=== PATIENT | male | born 2000 | race African-American/Black ===

== ENCOUNTER 2024-01-22 16:21 | Emergency (ER) | payer MEDICAID ==
[~2024-01-22] VITALS: Ht 170.2 cm; Wt 75.0 kg
[2024-01-22 16:23] VITALS: O2SAT 97
[2024-01-22 16:42] LABS: BASOPHILS % 0.9 % (0.0-2.0); DIFFERENTIAL COMMENT 0; EOSINOPHILS % 1.4 % (0.0-5.0); HEMATOCRIT. 46.7 % (42.0-52.0); HEMOGLOBIN. 15.1 g/dL (14.0-18.0); LYMPHOCYTES % 59.3 % (20.0-50.0); MEAN CORPUSCULAR HEMOGLOBIN 30.2 pg (28.0-32.0); MEAN CORPUSCULAR HGB CONC 32.3 g/dL (31.0-37.0); MEAN CORPUSCULAR VOLUME 93.6 fL (80.0-94.0); MEAN PLATELET VOLUME 9.9 fl (7.4-10.4); MONOCYTES % 6.9 % (2.0-8.0); NEUTROPHILS % 31.5 % (40.0-76.0); PLATELET 252 x1000/uL (130-400); RED BLOOD CELL COUNT 4.99 mill/uL (4.7-6.1); WHITE BLOOD COUNT 5.7 x1000/uL (4.5-11.0)
[2024-01-22 16:51] LABS: CHLORIDE 108 mEq/L (98-107); POTASSIUM 3.1 mEq/L (3.5-5.1); SODIUM 142 mEq/L (136-145)
[2024-01-22 16:52] LABS: CALCIUM 9.9 mg/dL (8.7-10.4); CARBON DIOXIDE 19 mEq/L (21-32)
[2024-01-22 16:57] LABS: CREATININE 1.4 mg/dL (0.6-1.3); GLUCOSE 172 mg/dL (70-105); UREA NITROGEN BLOOD 7 mg/dL (9-23)
[2024-01-22 16:59] LABS: ALANINE AMINOTRANSFERASE 11 IU/L (10-49); ALBUMIN 4.6 g/dL (3.2-4.8); ASPARTATE AMINOTRANSFERASE 20 IU/L (<34); BILIRUBIN TOTAL 0.4 mg/dL (0.1-1.0); PROTEIN TOTAL 6.8 g/dL (6.0-8.3)
[2024-01-22] MEDS: MORPHINE SULFATE 4 MG/ML INJ (FOR IV/IM USE) IV ONE (17:00)
[2024-01-22] MEDS: TETANUS, DIPHTHERIA, PERTUSSIS VAC/PF 0.5ML (>10YR OLD) IM ONE (17:01)
[2024-01-22 18:10] VITALS: BP 128/69; PULSE 60; RESP 21; TEMP 36.66960; O2SAT 97
[2024-01-22] MEDS ORDERED: IOHEXOL-350 100 ML BOTTLE ONE (23:36)
== END 2024-01-22 18:42 | disposition short-term general hospital (02) ==
LOC: ER 16:21
DX: S21.212A Laceration without foreign body of left back wall of thorax without penetration into thoracic cavity, initial encounter (principal); J93.9 Pneumothorax, unspecified; N17.9 Acute kidney failure, unspecified; X58.XXXA Exposure to other specified factors, initial encounter; Y93.89 Activity, other specified; Y92.89 Other specified places as the place of occurrence of the external cause; Y99.8 Other external cause status
CPT/HCPCS: 80053; 85025; 86850; 86900; 86901; 86920; 36415; 74174; 71045; 71275; 90715; 96372; 96374; 99291; Q9967; J2270; Z7610; P9016